=== PATIENT | female | born 1960 | race Caucasian/White ===

== ENCOUNTER 2022-10-15 07:58 | Outpatient (CLI) | payer MEDICARE, MEDICAID, SELFPAY ==
--- NOTE | ~2022-10-15 | MR_ITS ---
EXAMINATION: MR hip LT wo con DATE: 10/15/2022 10:13 INDICATION: Left hip joint pain TECHNIQUE: Magnetic resonance imaging (MRI) of the left hip was performed without intravenous contra st. Sequences included full-field axial PD-weighted FS FSE and T1-weighted FSE, coronal of the pelvis with PD-weighted FS FSE, T2-weighted FSE and T1-weighted FSE, small field of view of the left hip w ith axial PD-weighted FS FSE, sagittal PD-weighted FS FSE, coronal PD-weighted FS FSE and coronal T2 weighted FSE. Additional radial T1-weighted FGR oriented orthogonal to the acetabular rim were obtai regan for evaluation of the labrum. COMPARISON: None FINDINGS: Bones/labrum/cartilage: Alignment is normal. No fracture. No evident osteonecrosis at the hips. There is a 2.9 x 2.9 x 1.8 c m lesion at the left ilium positioned along the posterior inferior margin of the left sacroiliac join t which demonstrates somewhat serpiginous low signal intensity margins with small internal cystic com ponent. Appearance is nonspecific but suggestive of osteonecrosis/bone infarct. No other bone lesions identified. Moderate osteoarthritis at the left hip with axial predominant nonuniform joint space na rrowing with there is partial thickness cartilage loss involving greater than 50% the cartilage thick ness. Likely chronic labral degeneration with majority of the labrum having been replaced by marginal osteophytes along the rim of the acetabulum. Mild lumbar spondylosis and mild bilateral sacroiliac o steoarthritis. Fluid: Symmetric physiologic amount of fluid within both hip joints. Minimal fluid overlying the right great er trochanters deep to the gluteus swathi tendons consistent with mild trochanteric bursitis, right greater than left. Soft tissues: Normal and symmetric muscle bulk and signal in the pelvis and visualized proximal thighs. The iliopso as, gluteal and proximal hamstring tendons are normal. The uterus is not identified and has likely be en surgically resected. Limited evaluation of visceral organs of the pelvis is otherwise unremarka ble. No pathologically enlarged pelvic/inguinal lymphadenopathy. IMPRESSION: 1. Moderate left hip osteoarthritis with likely chronic labral degeneration. 2. 2.9 x 2.9 x 1.8 cm lesion at the ilium along side the left sacroiliac joint with appearance most s uggestive of bone infarct/osteonecrosis. Correlate with any prior outside imaging and if unavailable or noncontributory would recommend noncontrast CT of the pelvis for further evaluation. 3. Mild bilateral trochanteric bursitis, right greater than left. Reviewed, dictated and finalized at location B. [employer] IMPRESSION: 1. Moderate left hip osteoarthritis with likely chronic labral degeneration. 2. 2.9 x 2.9 x 1.8 cm lesion at the ilium along side the left sacroiliac joint with appearance most suggestive of bone infarct/osteonecrosis. Correlate with a ny prior outside imaging and if unavailable or noncontributory would recommend noncontrast CT of the pelvis for further evaluation. 3. Mild bilateral trochanteric bursitis, right greater than left.
== END 2022-10-15 07:59 | disposition home or self-care (01) ==
PROVIDERS: PCP Internal Medicine Gastroenterology; Visit Provider Orthopaedic Surgery
DX: M25.552 Pain in left hip (principal); M16.12 Unilateral primary osteoarthritis, left hip; M89.9 Disorder of bone, unspecified; M71.552 Other bursitis, not elsewhere classified, left hip; M71.551 Other bursitis, not elsewhere classified, right hip
CPT/HCPCS: 73721

== ENCOUNTER 2022-10-29 09:18 | Outpatient (CLI) | payer MEDICARE, MEDICAID, SELFPAY ==
--- NOTE | ~2022-10-29 | CT_ITS ---
Non-contrast CT scan of the Pelvis Clinical indication: Left hip pain Technique: 2.5 mm axial scans were obtained through the pelvis without intravenous or oral contrast. Dose reduction technique was used on this scan by utilizing automated exposure control and iterative reconstruction technique. The dose-length product (DLP) was 885.66 mGy-cm. Findings: Urinary bladder unremarkable. Patient is post hysterectomy. No pelvic/adnexal mass seen. Vi sualized bowel loops are essentially unremarkable aside from minimal diverticulosis. No ascites. No p elvic lymphadenopathy. No acute fracture or dislocation seen. There is minimal degenerative change of both hips. There is mi ld degenerative change of the bilateral sacroiliac joints. No joint effusion identified. There is a lesion in the left iliac bone adjacent to the SI joint, centrally lucent, with a thin scle rotic margin and more amorphous surrounding sclerosis. This correlates with lesion seen on prior MR d ated 10/15/2022. No periosteal reaction or associated soft tissue mass. Impression: Benign-appearing intramedullary lesion at the left iliac bone, as seen on prior MR. Likely diagnostic considerations would include etiologies such as bone infarct or focal fibrous dysplasia. Minimal degenerative change of both hip joints. Reviewed, dictated and finalized at location . GRINDER Impression: Benign-appearing intramedullary lesion at the left iliac bone, as seen on prior MR. Likely diagnostic considerations would include etiologies such as bone inf arct or focal fibrous dysplasia. Minimal degenerative change of both hip joints.
== END 2022-10-29 09:19 | disposition home or self-care (01) ==
PROVIDERS: PCP Internal Medicine Gastroenterology; Visit Provider Orthopaedic Surgery
DX: M25.552 Pain in left hip (principal)
CPT/HCPCS: 72192

== ENCOUNTER 2024-05-23 13:44 | Outpatient (CLI) | payer MEDICARE, MEDICAID, SELFPAY ==
--- NOTE | 2024-05-23 14:30 | NEURO_ITS ---
Impression: # Complains of numbness of hands. # Normal Nerve Conduction Study, no Carpal Tunnel Syndrome or ulnar neuropathy. # Normal needle/EMG exam. # Clinical correlation recommended. Nerve Conduction Studies Anti Sensory Summary Table Stim Site NR Peak (ms) P-T Amp (?V) Site1 Site2 Delta-P (ms) Dist (cm) Kendall (m/s) Left Median Anti Sensory (2-3nd Digit) Wrist 3.3 65.6 Wrist 2-3nd Digit 3.3 14.0 42 Wrist 3.4 23.8 Wrist 2-3nd Digit 3.3 14.0 42 Right Median Anti Sensory (2-3nd Digit) Wrist 3.3 76.8 Wrist 2-3nd Digit 3.3 14.0 42 Wrist 3.7 68.1 Wrist 2-3nd Digit 3.3 14.0 42 Left Radial Anti Sensory (Base 1st Digit) Wrist 1.8 54.0 Wrist Base 1st Digit 1.8 0.0 Right Radial Anti Sensory (Base 1st Digit) Wrist 1.9 35.3 Wrist Base 1st Digit 1.9 0.0 Left Ulnar Anti Sensory (5th Digit) Wrist 2.4 43.4 Wrist 5th Digit 2.4 14.0 58 Right Ulnar Anti Sensory (5th Digit) Wrist 2.3 28.6 Wrist 5th Digit 2.3 14.0 61 Motor Summary Table Stim Site NR Onset (ms) O-P Amp (mV) Site1 Site2 Delta-0 (ms) Dist (cm) Knedall (m/s) Left Median Motor (Abd Poll Brev) Wrist 3.4 3.2 Elbow Wrist 5.2 30.0 58 Elbow 8.6 2.0 Right Median Motor (Abd Poll Brev) Wrist 3.4 2.9 Elbow Wrist 4.3 26.0 60 Elbow 7.7 1.4 Left Ulnar Motor (Abd Dig Minimi) Wrist 2.4 7.2 A Elbow Wrist 5.3 30.0 57 A Elbow 7.7 5.2 Right Ulnar Motor (Abd Dig Minimi) Wrist 2.6 7.3 A Elbow Wrist 4.7 27.0 57 A Elbow 7.3 5.3 F Wave Studies NR F-Lat (ms) L-R F-Lat (ms) Left Median (Mrkrs) (Abd Poll Brev) 28.66 1.58 Right Median (Mrkrs) (Abd Poll Brev) 27.08 1.58 Left Ulnar (Mrkrs) (Abd Dig Min) 27.78 0.03 Right Ulnar (Mrkrs) (Abd Dig Min) 27.81 0.03 EMG Side Muscle Nerve Root Ins Act Fibs Amp Dur Recrt Comment Right 1stDorInt Ulnar C8-T1 Nml Nml Nml Nml Nml Right Ext Indicis Radial (Post Int) C7-8 Nml Nml Nml Nml Nml Right Ext Digitorum Radial (Post Int) C7-8 Nml Nml Nml Nml Nml Right BrachioRad Radial C5-6 Nml Nml Nml Nml Nml Right PronatorTeres Median C6-7 Nml Nml Nml Nml Nml Right Abd Poll Brev Median C8-T1 Nml Nml Nml Nml Nml Right ABD Dig Min Ulnar C8-T1 Nml Nml Nml Nml Nml Left 1stDorInt Ulnar C8-T1 Nml Nml Nml Nml Nml Left Ext Indicis Radial (Post Int) C7-8 Nml Nml Nml Nml Nml Left Ext Digitorum Radial (Post Int) C7-8 Nml Nml Nml Nml Nml Left BrachioRad Radial C5-6 Nml Nml Nml Nml Nml Left PronatorTeres Median C6-7 Nml Nml Nml Nml Nml Left Abd Poll Brev Median C8-T1 Nml Nml Nml Nml Nml Left ABD Dig Min Ulnar C8-T1 Nml Nml Nml Nml Nml MTDD
== END 2024-05-23 13:45 | disposition home or self-care (01) ==
LOC: ANHNEURO 13:46
PROVIDERS: PCP Internal Medicine Gastroenterology; Visit Provider Orthopaedic Surgery
DX: G56.02 Carpal tunnel syndrome, left upper limb (principal)
CPT/HCPCS: 95886; 95911

== ENCOUNTER 2024-06-26 08:30 | Outpatient (CLI) | payer MEDICARE, MEDICAID, SELFPAY ==
--- NOTE | 2024-06-26 08:30 | ECG_ITS ---
Test Date: 2024-06-26 08:56:19 Measurements Intervals [place] Rate: 73 P: 0 OH: 0 QRS: -17 QRSD: 86 T: 15 QT: 377 QTc: 417 Interpretive Statements ATRIAL FIBRILLATION LOW QRS VOLTAGE IN PRECORDIAL LEADS ANTERIOR INFARCT, AGE INDETERMINATE BASELINE ARTIFACT- I, II, III, AVR, AVL, AVF, V1-V2 ABNORMAL ECG No previous ECG available for comparison Electronically Signed On 06-26-2024 10:37:05 CDT by Chente Geronimo D.O.
[2024-06-26 09:45] LABS: Anion Gap 8 mmol/L (4-12); Blood Urea Nitrogen 21 mg/dL (7-17); Calcium 8.9 mg/dL (8.4-10.2); Carbon Dioxide 29 mmol/L (22-30); Chloride 102 mmol/L (98-107); Estimated Glomerular Filt Rate > 60; Glucose 117 mg/dL (65-110); Potassium 4.2 mmol/L (3.4-5.0); Sodium 139 mmol/L (137-145)
== END 2024-06-26 08:31 | disposition home or self-care (01) ==
PROVIDERS: Anesthesiology; PCP Internal Medicine Gastroenterology; Visit Provider Orthopaedic Surgery
DX: E11.9 Type 2 diabetes mellitus without complications (principal); Z01.818 Encounter for other preprocedural examination
CPT/HCPCS: 36415; 80048; 93005

== ENCOUNTER 2024-09-11 07:46 | Outpatient (CLI) | payer MEDICARE, MEDICAID, SELFPAY ==
[2024-09-11 08:44] LABS: Anion Gap 7 mmol/L (4-12); Blood Urea Nitrogen 23 mg/dL (7-17); Carbon Dioxide 27 mmol/L (22-30); Chloride 105 mmol/L (98-107); Estimated Glomerular Filt Rate > 60; Glucose 107 mg/dL (65-110); Sodium 139 mmol/L (137-145)
== END 2024-09-11 07:47 | disposition home or self-care (01) ==
LOC: ANHSURGERY 07:51
PROVIDERS: Anesthesiology; PCP Internal Medicine Gastroenterology; Visit Provider Orthopaedic Surgery
DX: Z01.818 Encounter for other preprocedural examination (principal); E11.9 Type 2 diabetes mellitus without complications
CPT/HCPCS: 36415; 80048

== ENCOUNTER 2024-09-13 01:10 | Day surgery (SDC) | payer MEDICARE, MEDICAID, SELFPAY ==
[2024-09-07 11:14] VITALS: BMI 51.5
--- NOTE | 2024-09-07 11:22 | PC.NURSE ---
Report to the Outpatient Waiting Room, entrance under the green pavilion located off [facility], at time _0900_ on date _[id number]_. Planned Procedure Time: 1100_.? Time changes happen often and if your time is changed the preop area will call you the afternoon before. - You and your visitor will be asked to self-screen and do not enter if you have any COVID symptoms. Please call surgeon if you need to reschedule. - A mask is optional within the hospital at this time. Patients may have clear liquids (water, carbonated beverages, clear teas, apple juice) until 3 hours prior to surgery with a maximum of 20 ounces. - No food from midnight until time of surgery and no smoking. This includes no chewing gum, candy or mints. Take only the following medications with a SIP of water on the morning of surgery: __Amlodipine, Atenolol and Clonidine___ DO NOT STOP ANY OF YOUR OTHER PRESCRIPTION MEDICATIONS PRIOR TO SURGERY EXCEPT THE FOLLOWING Medications to discontinue per physician ___Patient says she was told by Dr Flores to take Eliquis tuesday then to hold till after surgery. Date to take last mzjs___[id number]___ Please no make-up, nail canadian, hairspray, perfume, deodorant, or body powder the day of surgery.? No jewelry (including any body piercings) or valuables the day of surgery, leave them at home.? Please take a shower or bath the night before, or the morning of, surgery with an antibacterial soap.? Wear comfortable, loose fitting clothing.? - Jewelry must be removed prior to entering the operating room.? Rings and piercings that are not removed may be cut off. - The hospital will not accept responsibility for valuables.? - Please leave all valuables, including medications, at home the day of surgery. If you are going home after surgery, a licensed local company hazmat driver must drive you home.? - NO public transportation without another adult if you receive anesthesia. - We recommend that an adult stay with you for 24 hours following discharge. - We also recommend that you do not drive, make important decision, drink alcoholic beverages, or take any drugs that were not prescribed by your health care provider for at least 24 hours after your discharge time. Follow any additional instructions given to you from your surgeon. Telephone instructions given to __Kathy__and asked if any additional questions and then verbalized understanding. Patient advised to call surgeon office or pre surgery nurse liaison [phone] if any additional questions.
--- NOTE | 2024-09-12 11:49 | PM.IMHP ---
H&P: HPI History of Present Illness Date/Time: 09/12/24 11:49 Chief Complaint: De Quervain tenosynovitis left wrist Narrative: 64-year-old female who presents today for 1st dorsal compartment release left wrist. She has been having symptoms in this area for over 6 months. Patient has had this problem on the right wrist in the past and had surgery on it and had an excellent result. Patient is diabetic and has had a significant increase in her blood sugars following cortisone injections and therefore has not been given any in the left wrist at this point. She has been trying to treat this nonsurgically with rest, unfortunately this is not help. She has pain with use of the left hand and points at the radial styloid where she feels it. She would like proceed with surgery at this point. Patient was scheduled for surgery in June however she had new onset of AFib. She has been evaluated is under treatment for this from cardiology. She is ready proceed with surgery at this point. Review of Systems Review of Systems: All systems reviewed & are unremarkable except as noted in HPI and below PMFSH Past Medical History Medical History (Updated 06/09/24 @ 11:41 by Sammy Flores MD) Cancer Diabetes History of breast cancer Hypertension Low bone density Surgical History Surgical History History of foot surgery bilateral History of hand surgery right hand 3x, left thumb History of hysterectomy Family History Family History (Updated 06/08/24 @ 08:26 by DONELL Garcia) Mother Cancer Father Emphysema lung Sibling Kidney disease Sibling No problems noted. Social History Social History (Updated 06/08/24 @ 08:27 by DONELL Garcia) Smoking status: Never smoker Second hand tobacco smoke exposure: No Alcohol intake: never Substance use: never Substance use type: does not use Do You Feel Safe in your Home?: Yes Lack of Transportation: No Lack of Food: Never True Current Housing: I Have Housing Concerned About Future Housing: No Difficulty Paying Gas/Electric Bills: No Difficulty Paying for Meds: No Currently Unemployed: No Education: High School Diploma/GED Difficulty w/ Childcare or Family Care: No Living arrangements: with family Occupation/Education: retired Additional occupation/education comments: [employer] Gender identity (if verbalized by the patient): Female Spiritual care concerns: No Meds Home Medications and Allergies Home Medications Medication Instructions Recorded Confirmed Type anastrozole 1 mg tablet 1 mg PO HS 01/21/21 09/07/24 History glimepiride 4 mg tablet 4 mg PO HS 01/21/21 09/07/24 History losartan 100 mg tablet 100 mg PO DAILY 01/21/21 09/07/24 History pioglitazone 45 mg tablet 45 mg PO HS 01/21/21 09/07/24 History clonidine HCl 0.1 mg tablet 0.1 mg PO .COMPLEX 03/09/24 09/07/24 History alendronate 70 mg tablet 70 mg PO WEEKLY 04/25/24 09/07/24 History amlodipine 5 mg tablet 5 mg PO DAILY 04/25/24 09/07/24 History empagliflozin 25 mg tablet 25 mg PO DAILY 04/25/24 09/07/24 History (Jardiance) linagliptin 5 mg tablet (Tradjenta) 5 mg PO QAM 04/25/24 09/07/24 History rosuvastatin 5 mg tablet 5 mg PO HS 04/25/24 09/07/24 History apixaban 5 mg tablet (Eliquis) 5 mg PO BID 09/07/24 09/07/24 History atenolol 25 mg tablet 25 mg PO DAILY 09/07/24 09/07/24 History Allergies Allergy/AdvReac Type Severity Reaction Status Date / Time Penicillins Allergy Severe Hives Verified 09/07/24 11:11 Exam Narrative: 62-year-old female alert pleasant. BMI is 51.6. She has moderate tenderness to palpation of the 1st dorsal compartment. She has a positive Piero maneuver causing her pain in the dorsal radial wrist. There is no redness or warmth to the 1st dorsal compartment. She has intact sharp dull discrimination to the radial wrist and thumb. 2+ radial pulse. Resp: Auscultation: clear to auscultation bilaterally Cardio: Rate: regular rate Rhythm: abnormal rhythm Assessment and Plan Assessment and plan (1) De Quervain's tenosynovitis, left: Code(s): M65.4 - Radial styloid tenosynovitis [de Quervain] Status: Acute Assessment and Plan: Patient has de Quervain in the left wrist. She had surgery on the right wrist from the same problem and had excellent result in recovery. She would like to proceed with surgery on the left at this time. Surgical procedures well as the risks and complications were discussed in detail questions were answered we will proceed. Patient will stop her blood thinner 2 days prior to surgery we will resume it after surgery.
[2024-09-13] VITALS (8 sets, daily range): BP systolic 115–147; BP diastolic 48–75; PULSE 53–66; RESP 14–18; TEMP 36.2–36.6; O2SAT 92–98
[2024-09-13 09:34] LABS: Glucose Point of Care 107 mg/dl (65-105)
[2024-09-13] MEDS: KETOROLAC 15 MG/ML VIAL (*BKC) IV PUSH (09:40)
[2024-09-13] MEDS: ACETAMINOPHEN 500 MG TABLET 1000 MG PO (09:40)
--- NOTE | 2024-09-13 10:03 | WPDHPUPDATE1 ---
History and Physical Update Update Date/Time: 09/13/24 10:03 History and Physical has been reviewed, including an updated exam of the patient. There are NO changes in the patient's condition. Risks, benefits, and alternatives have been discussed and questions answered. Patient agrees to proceed with procedure.
--- NOTE | 2024-09-13 10:33 | P.PNAN_ITS ---
Anes - Initial Pre Proc Eval Procedure: Operation Date: 09/13/24 11:00 Proposed Procedures p Release First Dorsal Compartment Tendon Sheath Left Wrist - Sammy Flores MD Date/Time: 09/13/24 10:33 Surgeon: Sammy Flores MD Pre Op Diagnosis: left wrist de quervain's tenosynovitis Patient Data Age: 64 Gender: F Height: 1.59 m Weight: 133 kg Last Vital Signs Temp 36.2 C L 09/13/24 09:40 Pulse 61 09/13/24 09:40 Resp 14 09/13/24 09:40 BP 147/75 H 09/13/24 09:40 Pulse Ox 98 09/13/24 09:40 O2 Del Method Room Air 09/13/24 09:40 Allergies Allergy/AdvReac Type Severity Reaction Status Date / Time Penicillins Allergy Severe Hives Verified 09/13/24 10:09 Home Medications Medication Instructions Recorded Confirmed Type anastrozole 1 mg tablet 1 mg PO HS 01/21/21 09/07/24 History glimepiride 4 mg tablet 4 mg PO HS 01/21/21 09/07/24 History losartan 100 mg tablet 100 mg PO DAILY 01/21/21 09/07/24 History pioglitazone 45 mg tablet 45 mg PO HS 01/21/21 09/07/24 History clonidine HCl 0.1 mg tablet 0.1 mg PO .COMPLEX 03/09/24 09/13/24 History alendronate 70 mg tablet 70 mg PO WEEKLY 04/25/24 09/07/24 History amlodipine 5 mg tablet 5 mg PO DAILY 04/25/24 09/13/24 History empagliflozin 25 mg tablet 25 mg PO DAILY 04/25/24 09/07/24 History (Jardiance) linagliptin 5 mg tablet (Tradjenta) 5 mg PO QAM 04/25/24 09/07/24 History rosuvastatin 5 mg tablet 5 mg PO HS 04/25/24 09/07/24 History apixaban 5 mg tablet (Eliquis) 5 mg PO BID 09/07/24 09/13/24 History atenolol 25 mg tablet 25 mg PO DAILY 09/07/24 09/13/24 History Laboratory Tests 09/13/24 09:31 POC Capillary Glucose 107 H mg/dl (65-105) Patient hx anesthesia problems: none Family hx anesthesia problems: none Results Review: All pre-operative results and documents have been reviewed as part of the pre- operative evaluation. [facility] Past Medical History Medical History Cancer Diabetes History of breast cancer Hypertension Low bone density Surgical History Surgical History History of foot surgery bilateral History of hand surgery right hand 3x, left thumb History of hysterectomy Family History Family History Mother Cancer Father Emphysema lung Sibling Kidney disease Sibling No problems noted. 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 Informed Consent: The patient's anesthetic plan and its attendant risks and benefits were discussed with the patient/family/POA. Questions were solicited and answers provided to the satisfaction of the patient/family/POA.
[2024-09-13] MEDS: ceFAZolin 3 GM/D5W 100 ML 100 ML IVPB (10:37)
[2024-09-13] MEDS: LIDO 1%/EPINEPHRINE 1:100,000 50 ML VIAL 30 ML INFILTRATE (11:06)
[2024-09-13] MEDS: LACTATED RINGERS 1,000 ML 30 ML IV CONT (11:20)
--- NOTE | 2024-09-13 11:30 | W.PM.PROC2 ---
Procedure Note - Detailed Date of Procedure 09/13/24 Pre-op Diagnosis left wrist de quervain's tenosynovitis Post-op Diagnosis Same Procedure Performed First dorsal compartment release left wrist Surgeon Sammy Flores MD [employer] Anesthesia General Description of Procedure Patient was brought to the operating room and general anesthesia was administered. She received 3 g of Ancef preoperatively. The left hand and forearm were prepped draped usual fashion. Limb was exsanguinated tourniquet elevated to 250 mmHg. A 1/2 inch transverse incision was made approximately 1 cm proximal to the radial styloid of the left wrist on its radial border. Incision was made through the skin only. Blunt dissection gently through the subcutaneous fat brought us down to the 1st dorsal compartment tendon sheath. The vein and superficial branch of radial or nerve were retracted volarly. The 1st dorsal compartment tendon sheath was incised a little bit dorsal to its midportion to leave an adequate volar flap. Complete release was achieved proximally. Then complete relief release was achieved distally. We identified the extensor pollicis brevis tendon which was not in its own separate sheath and we confirmed that it moved with the MP joint of the thumb. We released tendinous adhesions between the AP L tendons and the EPB. This we move the wrist through full range of motion there is no subluxation. Tourniquet was released. Hemostasis was achieved with a few minutes of pressure the wound irrigated skin closed with 3-0 subcutaneous Vicryl and a 4-0 subcuticular Monocryl and glue. A soft bulky dressing applied and she was transferred postop recovery room stable condition. ANDREY Lazo Surgery - Charge Forward: Surgery Billing (Release 1st dorsal compartment tendon sheath left wrist for de Quervain tenosynovitis)
[2024-09-13 11:31] LABS: Glucose Point of Care 104 mg/dl (65-105)
== END 2024-09-13 12:52 | disposition home or self-care (01) ==
PROVIDERS: PCP Internal Medicine Gastroenterology; Visit Provider Orthopaedic Surgery
PROC: (CPT 25000; principal; 2024-09-13 11:00)
DX: M65.4 Radial styloid tenosynovitis [de Quervain] (principal); E11.9 Type 2 diabetes mellitus without complications; I10 Essential (primary) hypertension; Z85.3 Personal history of malignant neoplasm of breast; Z79.84 Long term (current) use of oral hypoglycemic drugs; E66.01 Morbid (severe) obesity due to excess calories; Z68.43 Body mass index [BMI] 50.0-59.9, adult
CPT/HCPCS: 25000; 82948; A9270; J0690; J1885; J2004; J2250; J2270; J2704; J7120